=== PATIENT | male | born 1960 | race Caucasian/White ===

== ENCOUNTER 2016-11-03 12:26 | Emergency (ER) | payer BC ==
[~2016-11-03] VITALS: Ht 185.4 cm; Wt 118.2 kg
[~2016-11-03 12:26] MED LIST: CHOLESTIPOL PO; COLESTID 1GM1 G PO; CYMBALTA; D-31000 IU PO; FERROUS SULFATE65 MG PO; LIALDA 1.2 GM1.2 GM PO; MULTIPLE VITAMI1 CAP PO; NORCO 325 MG-51 TAB PO; PYRIDIUM 100MG100 MG PO; SENOKOT S 50 MG1 TAB PO; SINGULAIR 110 MG/TAB PO; VIIBRYD20 MG PO; VITAMIN C500 MG PO
[2016-11-03 12:29] VITALS: TEMP 97.7
[2016-11-03] MEDS ORDERED: MEVACOR10 MG PO (12:34)
[2016-11-03] MEDS ORDERED: CIALIS5 MG PO (12:35)
[2016-11-03] MEDS ORDERED: NEXIUM 20MG20 MG PO (12:35)
[2016-11-03] MEDS ORDERED: CLARITIN 1010 MG/TAB PO (12:36)
[2016-11-03 13:12] LABS: BASO # 0.1 (0.0-0.2); BASO % 0.9 % (0.0-2.0); EOS # 0.6 (0.0-0.7); EOS % 6.4 % (0-4.0); GRAN # 4.5 (1.4-6.5); GRAN % 49.6 % (42.2-75.2); HEMATOCRIT 44.1 % (42.0-52.0); HEMOGLOBIN 14.5 g/dl (13.5-18.0); LYMPH % 32.8 % (20.0-51.0); MEAN CELL VOLUME 86 fl (80.0-100.0); MEAN CORPUSCULAR HEMOGLOBIN 28 pg (27.0-31.0); MEAN CORPUSCULAR HGB CONC 33 g/dl (33.0-37.0); MEAN PLATELET VOLUME 9.8 fl (7.4-10.4); MONO # 0.9 (0.1-0.6); MONO % 9.9 % (1.7-9.3); PLATELET COUNT 173 K/mm3 (130-400); RED BLOOD COUNT 5.16 M/mm3 (4.20-5.60); REDCELL DISTRIBUTION WIDTH-CV 13.5 % (11.5-14.5); WHITE BLOOD COUNT 9.1 K/mm3 (4.8-10.8)
[2016-11-03 13:17] LABS: PARTIAL THROMBOPLASTIN TIME 29.7 SECONDS (26.0-37.0)
[2016-11-03 13:22] LABS: CALCIUM 9.6 mg/dL (8.4-10.2); CREATININE, serum 1.11 mg/dL (0.66-1.25)
[2016-11-03] MEDS ORDERED: COZAAR 50MG50 MG/TAB PO (14:01)
[2016-11-03 14:08] VITALS: BP 150/102; PULSE 86
== END 2016-11-03 14:09 | disposition home or self-care (01) ==
LOC: COL.ER 12:26
PROVIDERS: Emergency Medicine
DX: R04.0 Epistaxis (principal); I10 Essential (primary) hypertension

== ENCOUNTER → 2016-12-12 | Outpatient (CLI) | payer BC ==
[~2016-12-12] MED LIST changes: +CIALIS5 MG PO; +CLARITIN 1010 MG/TAB PO; +COZAAR 50MG50 MG/TAB PO; +MEVACOR10 MG PO; +NEXIUM 20MG20 MG PO
== END ==
LOC: COL.RAD 14:00
DX: N20.0 Calculus of kidney (principal); K76.0 Fatty (change of) liver, not elsewhere classified
CPT/HCPCS: Q9967

== ENCOUNTER → 2017-10-28 | Outpatient (CLI) | payer BC | LOC: SUN.DIA 13:06 | DX: E11.40 Type 2 diabetes mellitus with diabetic neuropathy, unspecified (principal); E78.5 Hyperlipidemia, unspecified; I10 Essential (primary) hypertension; E66.9 Obesity, unspecified; Z68.32 Body mass index [BMI] 32.0-32.9, adult; Z71.3 Dietary counseling and surveillance | CPT/HCPCS: G0108 ==

== ENCOUNTER → 2017-11-26 | Outpatient (CLI) | payer BC | LOC: SUN.DIA 13:13 | DX: E11.40 Type 2 diabetes mellitus with diabetic neuropathy, unspecified (principal); E78.5 Hyperlipidemia, unspecified; I10 Essential (primary) hypertension; E66.9 Obesity, unspecified; Z68.32 Body mass index [BMI] 32.0-32.9, adult; Z71.3 Dietary counseling and surveillance | CPT/HCPCS: G0108 ==

== ENCOUNTER → 2017-12-04 | Outpatient (CLI) | payer BC | LOC: SUN.DIA 15:29 | DX: E11.40 Type 2 diabetes mellitus with diabetic neuropathy, unspecified (principal); E78.5 Hyperlipidemia, unspecified; I10 Essential (primary) hypertension; E66.9 Obesity, unspecified; Z71.3 Dietary counseling and surveillance | CPT/HCPCS: G0109 ==

== ENCOUNTER → 2018-01-14 | Outpatient (CLI) | payer BC | LOC: SUN.DIA 12-11 10:06 | DX: E11.40 Type 2 diabetes mellitus with diabetic neuropathy, unspecified (principal); E78.5 Hyperlipidemia, unspecified; I10 Essential (primary) hypertension; E66.9 Obesity, unspecified; Z68.33 Body mass index [BMI] 33.0-33.9, adult; Z71.3 Dietary counseling and surveillance | CPT/HCPCS: G0108 ==

== ENCOUNTER → 2018-02-17 | Outpatient (CLI) | payer BC | LOC: SUN.DIA 12-18 10:49 | DX: E11.40 Type 2 diabetes mellitus with diabetic neuropathy, unspecified (principal); E78.5 Hyperlipidemia, unspecified; I10 Essential (primary) hypertension; E66.9 Obesity, unspecified; Z68.33 Body mass index [BMI] 33.0-33.9, adult; Z71.3 Dietary counseling and surveillance | CPT/HCPCS: G0108 ==

== ENCOUNTER → 2018-05-06 | Outpatient (CLI) | payer BC | LOC: SUN.DIA 01-01 16:36 | DX: E11.40 Type 2 diabetes mellitus with diabetic neuropathy, unspecified (principal); E78.5 Hyperlipidemia, unspecified; I10 Essential (primary) hypertension; E66.9 Obesity, unspecified | CPT/HCPCS: G0108 ==

== ENCOUNTER → 2018-08-07 | Outpatient (CLI) | payer BC | LOC: SUN.DIA 14:29 | DX: E11.40 Type 2 diabetes mellitus with diabetic neuropathy, unspecified (principal); E78.5 Hyperlipidemia, unspecified; I10 Essential (primary) hypertension; E66.9 Obesity, unspecified | CPT/HCPCS: G0108 ==

== ENCOUNTER → 2018-12-04 | Outpatient (CLI) | payer BC | LOC: SUN.DIA 11-20 11:30 | DX: E11.40 Type 2 diabetes mellitus with diabetic neuropathy, unspecified (principal); E78.5 Hyperlipidemia, unspecified; I10 Essential (primary) hypertension; E66.9 Obesity, unspecified | CPT/HCPCS: G0108 ==

== ENCOUNTER → 2019-03-26 | Outpatient (CLI) | payer BC | LOC: SUN.DIA 03-17 14:47 → DIA.ED 14:50 | DX: E11.40 Type 2 diabetes mellitus with diabetic neuropathy, unspecified (principal); E78.5 Hyperlipidemia, unspecified; I10 Essential (primary) hypertension; E66.9 Obesity, unspecified | CPT/HCPCS: G0108 ==

== ENCOUNTER 2019-04-08 02:37 | Emergency (ER) | payer BC ==
[~2019-04-08] VITALS: Ht 185.4 cm; Wt 110.0 kg
[2019-04-08 02:42] VITALS: BP 120/73
[2019-04-08 03:00] LABS: HEMATOCRIT 48.3 % (42.0-52.0); HEMOGLOBIN 15.8 g/dl (13.5-18.0); MEAN CELL VOLUME 86 fl (80.0-100.0); MEAN CORPUSCULAR HEMOGLOBIN 28 pg (27.0-31.0); MEAN CORPUSCULAR HGB CONC 33 g/dl (33.0-37.0); PLATELET COUNT 214 K/mm3 (130-400); REDCELL DISTRIBUTION WIDTH-CV 13.4 % (11.5-14.5)
[2019-04-08 03:12] LABS: ALBUMIN 3.9 gm/dL (3.5-5.0); BILIRUBIN,TOTAL 0.9 mg/dL (0.0-1.0); CALCIUM 9.3 mg/dL (8.4-10.2); CREATININE, serum 1.31 (0.66-1.25); POTASSIUM 4.2 mmol/L (3.4-5.0); TOTAL PROTEIN 7.5 gm/dL (6.4-8.2)
[2019-04-08 03:24] LABS: BAND 2 % (0-10); EOSINOPHIL 4 % (0-4); LYMPHOCYTE 45 % (20.0-51.0); NEUTROPHILS 37 % (42.0-75.2); PLATELET ESTIMATE NORMAL (NORMAL)
[2019-04-08] MEDS ORDERED: NORCO 325 MG-51 TAB PO (04:32)
[2019-04-08] MEDS ORDERED: ZOFRAN ODT4 MG SL (04:32)
[2019-04-08 06:30] LABS: COLLECTION METHOD CLEAN CATCH
[2019-04-08 07:04] LABS: PH 5 (5-8); SQUAMOUS EPITHELIAL None Seen /hpf; URINE APPEARANCE Clear; URINE BACTERIA None Seen /hpf; URINE BILIRUBIN Negative (NEGATIVE); URINE BLOOD Negative (NEGATIVE); URINE COLOR Yellow; URINE GLUCOSE 3+ (NEGATIVE); URINE KETONE Negative (NEGATIVE); URINE LEUKOCYTE ESTERASE Negative (NEGATIVE); URINE NITRATE Negative (NEGATIVE); URINE PROTEIN(semi-quant) Negative (NEGATIVE); URINE RBC 0-2 /hpf; URINE UROBILINOGEN Negative (NEGATIVE)
[2019-04-08 07:50] VITALS: PULSE 67; TEMP 97.6
== END 2019-04-08 07:50 | disposition home or self-care (01) ==
LOC: COL.ER 02:37
PROVIDERS: Emergency Medicine
DX: N20.2 Calculus of kidney with calculus of ureter (principal); E11.9 Type 2 diabetes mellitus without complications; Z79.4 Long term (current) use of insulin
CPT/HCPCS: J1885; J2405; J3010; J7030

== ENCOUNTER 2019-11-17 12:25 | Day surgery (SDC) | payer BC ==
[2019-11-17] VITALS (10 sets, daily range): BP systolic 125–146; BP diastolic 73–90; PULSE 68–81; TEMP 97.8–98.2
[~2019-11-17] VITALS: Ht 185.4 cm; Wt 113.0 kg
[~2019-11-17 12:25] MED LIST changes: +ALLEGRA ALLERGY60 MG PO; +CEPHALEXIN500 M1 PO; +GLUCOPHAGE500 MG/TAB PO; +JARDIANCE25; +ZOFRAN ODT4 MG SL
[2019-11-17 13:08] LABS: BASO % 0.5 % (0.0-2.0); EOS # 0.6 (0.0-0.7); EOS % 7.4 % (0-4.0); GRAN % 48.6 % (42.2-75.2); HEMATOCRIT 47.5 % (42.0-52.0); HEMOGLOBIN 15.4 g/dl (13.5-18.0); LYMPH # 2.6 (1.2-3.4); LYMPH % 31.3 % (20.0-51.0); MEAN CELL VOLUME 85 fl (80.0-100.0); MEAN CORPUSCULAR HEMOGLOBIN 28 pg (27.0-31.0); MEAN CORPUSCULAR HGB CONC 32 g/dl (33.0-37.0); MEAN PLATELET VOLUME 10.3 fl (7.4-10.4); MONO % 12.1 % (1.7-9.3); PLATELET COUNT 158 K/mm3 (130-400); RED BLOOD COUNT 5.58 M/mm3 (4.20-5.60); REDCELL DISTRIBUTION WIDTH-CV 12.9 % (11.5-14.5)
[2019-11-17 13:23] LABS: INR 0.9 (0.8-3.0)
[2019-11-17 13:25] LABS: CALCIUM 9.5 mg/dL (8.4-10.2); CREATININE, serum 1.08 (0.66-1.25); POTASSIUM 4.2 mmol/L (3.4-5.0)
--- NOTE | 2019-11-17 15:20 | NUR ---
SEE MERGE DOCUMENTATION FOR MEDICATION ADMINISTRATION TIMES AND INTRA/POST PROCEDURE SEDATION ASSESSMENT DOCUMENTATION.
--- NOTE | 2019-11-17 23:31 | NUR ---
Pt doing well. Alert and oriented with vss. Denies any pain. States he feels good. Will have interrogation tomorrow AM. Call light within reach, will continue to monitor
[2019-11-18 03:52] VITALS: BP 122/80; PULSE 79; TEMP 98.1
[2019-11-18 07:01] LABS: BASO % 0.4 % (0.0-2.0); EOS # 0.6 (0.0-0.7); EOS % 6.3 % (0-4.0); GRAN # 5.5 (1.4-6.5); GRAN % 57.2 % (42.2-75.2); HEMOGLOBIN 15.3 g/dl (13.5-18.0); LYMPH # 2.4 (1.2-3.4); LYMPH % 24.2 % (20.0-51.0); MEAN CELL VOLUME 86 fl (80.0-100.0); MEAN CORPUSCULAR HEMOGLOBIN 28 pg (27.0-31.0); MEAN CORPUSCULAR HGB CONC 33 g/dl (33.0-37.0); MEAN PLATELET VOLUME 10.5 fl (7.4-10.4); MONO # 1.1 (0.1-0.6); MONO % 11.5 % (1.7-9.3); PLATELET COUNT 151 K/mm3 (130-400); RED BLOOD COUNT 5.46 M/mm3 (4.20-5.60); REDCELL DISTRIBUTION WIDTH-CV 13.1 % (11.5-14.5)
[2019-11-18 07:13] LABS: CALCIUM 9.2 mg/dL (8.4-10.2); CREATININE, serum 1.12 (0.66-1.25); MAGNESIUM 2.2 mg/dL (1.6-2.3); POTASSIUM 4.4 mmol/L (3.4-5.0)
[2019-11-18 08:18] VITALS: BP 133/81; PULSE 69; TEMP 97.2
--- NOTE | 2019-11-18 10:14 | NUR ---
Several visit attempt; D[employer] Belt Conveyor left card informing patient of the availabity of Spiritual Care at our [facility].
--- NOTE | 2019-11-18 11:16 | NUR ---
Tilt Wall Supervisor met with the patient to discuss discharge planning. Patient lives alone in [place] and sees Dr. Lazaro for primary care. Patient obtains medications from [facility] with no difficulties. Patient has a cpap but reports he does not wear it because it's uncomfortable. Patient reports independence with ADLS. Patient does not have DPOA-HC but states this is something he will discuss with his sister and daughter. Patient states he does have a will drawn up. Patient plans on returning home upon discharge and reports he has transportation arranged. No additional needs at this time.
[2019-11-18] MEDS ORDERED: CEPHALEXIN500 M1 PO (11:29)
[2019-11-18] MEDS ORDERED: ZEBETA 5MG5 MG PO (11:30)
[2019-11-18] MEDS ORDERED: NORCO 325 MG-51 TAB PO (11:35)
[2019-11-18 11:47] VITALS: BP 127/81; PULSE 80; TEMP 99
--- NOTE | 2019-11-18 13:00 | NUR ---
Patient ready for discharge. Cardiology rounded & orders obtained. We reviewed all discharge instructions. [place] script given to patient. Keflex & Bisprolol script faxed to pharmacy. We reviewed all medication & home med list & medication safety. Stressed the importance of a heart healthy diet. Pacer activity restrictions reviewed. He is aware of follow of APPT & signs & symptoms of infection. Patient ambulated out with all belongings, his significant other taking him home.
== END 2019-11-18 13:00 | disposition home or self-care (01) ==
LOC: COL.CAR 12:25 → SURG 17:54 → COL.CAR 11-18 13:00
DX: T82.110A Breakdown (mechanical) of cardiac electrode, initial encounter (principal); I44.2 Atrioventricular block, complete; I10 Essential (primary) hypertension; J45.909 Unspecified asthma, uncomplicated; Z79.899 Other long term (current) drug therapy
CPT/HCPCS: OP; J0690; J2250; J3010; J7040

== ENCOUNTER → 2021-04-20 | Outpatient (CLI) | payer BC ==
--- NOTE | 2021-04-19 10:27 | NUR ---
PT RESCHEDULED TO SATURDAY. MRI AND CHAITANYA INFORMED
[~2021-04-20] MED LIST changes: +ZEBETA 5MG5 MG PO
== END ==
LOC: COL.RAD 04-19 09:45
DX: K51.819 Other ulcerative colitis with unspecified complications (principal); K76.0 Fatty (change of) liver, not elsewhere classified; M25.50 Pain in unspecified joint

== ENCOUNTER 2023-01-22 07:24 | Day surgery (SDC) | payer BC ==
[~2023-01-22] VITALS: Ht 185.4 cm; Wt 104.6 kg
[2023-01-22] VITALS (14 sets, daily range): BP systolic 98–148; BP diastolic 57–78; PULSE 68–82; TEMP 98.3
[2023-01-22 08:14] LABS: HEMATOCRIT 47.2 % (42.0-52.0); HEMOGLOBIN 15.5 g/dl (13.5-18.0); MEAN CELL VOLUME 85 fl (80.0-100.0); MEAN CORPUSCULAR HEMOGLOBIN 28 pg (27-31); MEAN CORPUSCULAR HGB CONC 33 g/dl (33.0-37.0); MEAN PLATELET VOLUME 9.9 fl (7.4-10.4); PLATELET COUNT 217 K/mm3 (130-400); RED BLOOD COUNT 5.54 M/mm3 (4.20-5.60); REDCELL DISTRIBUTION WIDTH-CV 12.9 % (11.5-14.5)
[2023-01-22 08:22] LABS: PROTHROMBIN TIME 11.5 SECONDS (9.7-12.8)
[2023-01-22 08:29] LABS: CALCIUM 9.8 mg/dL (8.4-10.2); CREATININE, serum 1.27 mg/dL (0.72-1.25)
[2023-01-22] MEDS ORDERED: COZAAR 25MG25 MG/TAB PO (08:49)
[2023-01-22] MEDS ORDERED: PRILOSEC 20MG20 MG PO (08:49)
[2023-01-22] MEDS ORDERED: LIPITOR20 MG PO (08:50)
[2023-01-22] MEDS ORDERED: ASPIRIN E.C. 8181 MG PO (08:51)
[2023-01-22] MEDS ORDERED: TOPROL XL 25MG25 MG PO (08:52)
[2023-01-22] MEDS ORDERED: TIROSINT50 MC1 PO (08:52)
[2023-01-22] MEDS ORDERED: TRULICITY1.5 MG/0.5 SQ (08:53)
[2023-01-22] MEDS ORDERED: COMPLETE MULTI1 TAB PO (08:54)
--- NOTE | 2023-01-22 09:39 | NUR ---
SEE MERGE FOR ALL INTERVENTIONS, VITAL SIGNS AND MEDICATIONS.
--- NOTE | 2023-01-22 09:41 | NUR ---
Initial visit; Patient and nurses thanked [employer] for offering prayer prior to patient's Heart Catherization. [employer] offered encouragement and comfort as well.
[2023-01-22] MEDS ORDERED: PLAVIX 75MG TAB75 MG PO (12:07)
[2023-01-22] MEDS ORDERED: RANEXA 500MG T500 MG PO (12:07)
--- NOTE | 2023-01-22 13:30 | NUR ---
Air has been removed from TR band in 2 ml increments with no bleeding or complications. Site dressed with folded 2x2 gauze and bandaid. Pt has eaten lunch tray, no c/o nausea. He is drowsy, asks to sleep for a little longer before discharging. Call light in reach. Will continue to monitor.
--- NOTE | 2023-01-22 14:50 | NUR ---
DC instructions reviewed with pt, he expresses understanding. He is steady on feet up to restroom. IV DC'd, site wrapped with coban. Dressing over rt radial puncture site remains clean, dry and intact. Pt states his ride is held up at work and not sure when she will arrive. Pt will remain in room, resting in bed until she arrives. He is snacking on muffin and soda. Call light in reach.
--- NOTE | 2023-01-22 15:30 | NUR ---
Pt's ride has arrived, he is assisted out to her car by wheelchair with belongings.
== END 2023-01-22 15:30 | disposition home or self-care (01) ==
LOC: COL.CAR 07:24
PROVIDERS: Internal Medicine Cardiovascular Disease
DX: I25.41 Coronary artery aneurysm (principal); I25.10 Atherosclerotic heart disease of native coronary artery without angina pectoris; I42.9 Cardiomyopathy, unspecified
CPT/HCPCS: J1644; J2250; J3010; Q9967